=== PATIENT | female | born 1985 | race American Indian/Alaskan Native ===

== ENCOUNTER 2017-01-30 03:20 | Emergency (ER) | payer SELFPAY ==
[2017-01-30 05:04] VITALS: BP 145/102
== END 2017-01-30 05:15 ==
LOC: ED 03:20
DX: O26.899 Other specified pregnancy related conditions, unspecified trimester (principal); R10.9 Unspecified abdominal pain; Z3A.00 Weeks of gestation of pregnancy not specified; Z53.21 Procedure and treatment not carried out due to patient leaving prior to being seen by health care provider

== ENCOUNTER 2017-03-16 21:22 | Emergency (ER) | payer OTHER ==
[2017-03-16 22:38] LABS: Hematocrit 36.6 % (30.3-42.9); Hemoglobin 11.6 gm/dl (10.1-14.3); Mean Corpuscular HGB Conc 32 % (30-34); Mean Corpuscular Hemoglobin 28 pg (28-32); Mean Corpuscular Volume 88 fl (79-97); Platelet Count 215 K/mm3 (140-440); Red Blood Count 4.18 M/mm3 (3.65-5.03); Red Cell Distribution Width 14.3 % (13.2-15.2); White Blood Count 13.6 K/mm3 (4.5-11.0)
[2017-03-16 22:56] LABS: Alanine Aminotransferase 12 units/L (7-56); Albumin/Globulin Ratio 1.4 %; Alkaline Phosphatase 84 units/L (35-129); Anion Gap 16 mmol/L; BUN/Creatinine Ratio 13.33; Bilirubin,Total < 0.20 mg/dL (0.1-1.2); Blood Urea Nitrogen 12 mg/dL (7-17); Calcium 8.6 mg/dL (8.4-10.2); Carbon Dioxide 27 mmol/L (22-30); Chloride 102.6 mmol/L (98-107); Glucose 100 mg/dL (65-100); Lipase 28 units/L (13-60); Potassium 3.9 mmol/L (3.6-5.0); Sodium 142 mmol/L (137-145); Total Protein 6.8 g/dL (6.3-8.2)
[2017-03-16 23:56] LABS: Bilirubin,Urine NEG (Negative); Blood,Urine MOD (Negative); Ketones,Urine NEG (Negative); Leukocyte Esterase,Urine NEG (Negative); Mucus,Urine FEW /HPF; Nitrite,Urine NEG (Negative); Protein,Urine <15 mg/dL mg/dL (Negative); Urobilinogen,Urine < 2.0 mg/dL (<2.0)
--- NOTE | 2017-03-17 03:49 | Ultrasound Report ---
FINAL REPORT PROCEDURE: US TRANSVAGINAL TECHNIQUE: Real-time transabdominal sonography in multiple planes of the pelvis was performed. The pelvic structures, especially the ovaries were not optimally visualized. Transvaginal sonography was then performed to better evaluate the structures and/or abnormalities described below with image documentation. CPT 61668 and 61075 HISTORY: abd/pelvic pain, "IUD fell out" COMPARISON: No prior studies are available for comparison. FINDINGS: UTERUS Size: 9.8 x 4.5 x 5.8 cm. Endometrial thickness: 8 mm. There is an intrauterine device identified within the endometrium Orientation: anteverted. Cervix: Normal. Fibroids/masses: None. RIGHT Ovary: 3.1 x 2.7 x 3.3 cm. Appearance: Dominant cyst measures 11 millimeters. LEFT Ovary: 3 x 1.9 x 2.5 cm. Appearance: Normal. Pelvic fluid: None. Other: None. IMPRESSION: Intrauterine device identified in the endometrium. There remainder of the imaging study is normal.
--- NOTE | 2017-03-17 03:50 | Ultrasound Report ---
FINAL REPORT PROCEDURE: Ultrasound pelvis transabdominal and transvaginal TECHNIQUE: Real-time transabdominal sonography in multiple planes of the pelvis was performed. The pelvic structures, especially the ovaries were not optimally visualized. Transvaginal sonography was then performed to better evaluate the structures and/or abnormalities described below with image documentation. CPT 71997 and 60658 HISTORY: abd/pelvic pain, "IUD fell out" COMPARISON: No prior studies are available for comparison. FINDINGS: UTERUS Size: 9.8 x 4.5 x 5.8 cm. Endometrial thickness: 8 mm. There is an intrauterine device identified within the endometrium Orientation: anteverted. Cervix: Normal. Fibroids/masses: None. RIGHT Ovary: 3.1 x 2.7 x 3.3 cm. Appearance: Dominant cyst measures 11 millimeters. LEFT Ovary: 3 x 1.9 x 2.5 cm. Appearance: Normal. Pelvic fluid: None. Other: None. IMPRESSION: Intrauterine device identified in the endometrium. There remainder of the imaging study is normal.
[2017-03-17 06:01] VITALS: BP 130/91
--- NOTE | 2017-03-17 06:22 | Emergency Department Report ---
HPI - General Chief Complaint: Abdominal Pain Time Seen by Provider: 03/17/17 06:17 - HPI HPI: pelvic pain, thinks her iud fell out. patient also has not seen menstrual cycle this month. pelvic pain, is 5/10, cramping without radiation. no fever, chills, night sweats. ED Past Medical Hx - Past Medical History Hx Hypertension: Yes Hx Congestive Heart Failure: No Hx Diabetes: No Hx COPD: No - Family History Family history: hypertension - Social History Smoking Status: Never Smoker Substance Use Type: Alcohol - Medications Home Medications: Home Medications Medication Instructions Recorded Confirmed Last Taken Type Pantoprazole [Protonix TAB] 20 mg PO BID #60 tablet. 02/04/15 03/17/17 Unknown Rx traMADol [Ultram] 50 mg PO Q6HR PRN #14 tablet 03/17/17 Unknown Rx ED Review of Systems ROS: Stated complaint: ABD PAIN Other details as noted in HPI Comment: All other systems reviewed and negative Gastrointestinal: as per HPI Genitourinary: as per HPI, abnormal menses Musculoskeletal: as per HPI Physical Exam - Physical Exam Vital Signs: Vital Signs 03/16/17 03/17/17 03/17/17 22:08 00:48 05:59 Temperature 99 F 98.6 F Pulse Rate 103 H 85 68 Respiratory 20 18 18 Rate Blood Pressure 153/112 140/100 Blood Pressure 130/91 [Left] O2 Sat by Pulse 100 100 98 Oximetry Physical Exam: gen: alert and oriented x 3 heent: perrla, eomi cv: rrr, nl s1, s2 lungs : cta b abd: s,nt,nd, pos bs ext: no swelling gu- patient refused, states she has to go to work has been here for 8 hrs neuro-no deficits ED Course Vital Signs 03/16/17 03/17/17 03/17/17 22:08 00:48 05:59 Temperature 99 F 98.6 F Pulse Rate 103 H 85 68 Respiratory 20 18 18 Rate Blood Pressure 153/112 140/100 Blood Pressure 130/91 [Left] O2 Sat by Pulse 100 100 98 Oximetry ED Medical Decision Making - Lab Data Result diagrams: 03/16/17 22:19 03/16/17 22:19 Critical care attestation.: If time is entered above; I have spent that time in minutes in the direct care of this critically ill patient, excluding procedure time. ED Disposition Clinical Impression: Pelvic pain, Abnormal menstrual cycle Disposition: TO HOME OR SELFCARE Is pt being admited?: No Does the pt Need Aspirin: No Condition: Stable Instructions: Abdominal Pain (ED) Prescriptions: traMADol [Ultram] 50 mg PO Q6HR PRN #14 tablet PRN Reason: Pain Referrals: SILVINA MUELLER MD [Primary Care Provider] - 3-5 Days
== END 2017-03-17 06:31 | disposition home or self-care (01) ==
LOC: ED 21:22
DX: N92.5 Other specified irregular menstruation (principal); R10.2 Pelvic and perineal pain; I10 Essential (primary) hypertension
CPT/HCPCS: 36415; 76830; 76856; 80053; 81001; 83690; 84702; 85025; 86900; 86901